=== PATIENT | female | born 1975 | race Two or more races ===

== ENCOUNTER 2024-04-23 12:20 | Inpatient (IN) | payer MEDICAID, OTHER ==
[~2024-04-23] VITALS: Ht 167.6 cm; Wt 102.6 kg
[2024-04-23 13:07] LABS: Basophils # (auto) 0 10 ^3/uL (0-0.2); Basophils % (auto) 0.4 % (0.0-2.0); Eosinophils # (auto) 0.2 10 ^3/uL (0-0.8); Eosinophils % (auto) 2.9 % (0.0-7.0); Hematocrit 28.8 % (36.0-46.0); Hemoglobin 9.3 g/dL (12.2-16.2); Lymphocytes % (auto) 29.2 % (10.0-50.0); Mean Corpuscular Hemoglobin 23.1 pg (28.0-32.0); Mean Corpuscular Hgb Conc. 32.2 g/dL (32.0-36.0); Mean Corpuscular Volume 71.8 fL (80.0-100.0); Monocytes # (auto) 0.5 10 ^3/uL (0-1.3); Monocytes % (auto) 7.4 % (0.0-12.0); Neutrophils % (auto) 60.1 % (37.0-80.0); Red Blood Cells 4.01 10^6/uL (4.0-5.20); Red Cell Distribution Width 18.3 % (11.8-14.3); White Blood Cell 6.7 10^3/uL (4.4-10.8)
[2024-04-23 13:24] LABS: Alanine Aminotransferase 22 U/L (7-40); Albumin 4.3 g/dL (3.2-4.8); Alkaline Phosphatase 87 U/L (46-116); Anion Gap 6 (5-15); Aspartate Aminotransferase 18 U/L (13-40); BUN/Creatinine Ratio 28.6 (10.0-20.0); Blood Urea Nitrogen 16 mg/dL (9-23); Calcium 9.3 mg/dL (8.7-10.4); Carbon Dioxide 24 mmol/L (20-30); Chloride 109 mmol/L (98-107); Glucose 101 mg/dL (74-106); Potassium 4.2 mmol/L (3.5-5.1); Sodium 139 mmol/L (136-145)
[2024-04-23 13:25] LABS: Bilirubin, Total 0.6 mg/dL (0.2-1.0); Total Protein 7.1 g/dL (5.7-8.2)
[2024-04-23] MEDS: IOHEXOL 350 MG/ML 100ML IJ ONE (13:57)
[2024-04-23 14:48] VITALS: PULSE 65; RESP 16; O2SAT 100
[2024-04-23 15:35] VITALS: PULSE 72; RESP 19; O2SAT 100
[2024-04-23] MEDS: ENOXAPARIN SOD 100 MG/1 ML SYRINGE SC ONE (15:47)
[2024-04-23 16:05] LABS: Urine Bacteria None Seen /hpf (None Seen)
[2024-04-23 16:35] LABS: Urine Blood 3+ /uL (Negative); Urine Clarity Clear (Clear); Urine Color Light-Yellow (Yellow); Urine Mucus FEW (None Seen); Urine Protein, UAD TRACE (Negative); Urine Urobilinogen Normal (Negative); Urine WBC 8 /hpf (0 - 5); Urine pH 5.5 (5.0-9.0)
[2024-04-23 16:36] LABS: Urine Specific Gravity > 1.050 (1.001-1.035)
[2024-04-23] MEDS ORDERED: HEPARIN SODIUM (PORCINE) 5000 UNITS/ML 1ML VIAL IV ONE (17:15)
[2024-04-23] MEDS ORDERED: DOCUSATE SOD 100 MG CAP PO PRN (17:15)
[2024-04-23] MEDS ORDERED: MORPHINE SULFATE INJ 2 MG/ml SYRG IV PRN ×2 (17:15)
[2024-04-23] MEDS ORDERED: HEPARIN DRIP/D5W 100UNITS/ML 250 ML IV SCH (17:15)
[2024-04-23] MEDS ORDERED: ONDANSETRON HCL 4 MG/2 ML VIAL IV PRN (17:15)
[2024-04-23] MEDS ORDERED: NITROGLYCERIN 0.4 MG SL TAB SL PRN (17:15)
[2024-04-23 17:55] LABS: Basophils # (auto) 0 10 ^3/uL (0-0.2); Basophils % (auto) 0.4 % (0.0-2.0); Eosinophils # (auto) 0.2 10 ^3/uL (0-0.8); Eosinophils % (auto) 2.4 % (0.0-7.0); Hematocrit 28.1 % (36.0-46.0); Lymphocytes # (auto) 2.1 10 ^3/uL (0.4-5.4); Lymphocytes % (auto) 30.8 % (10.0-50.0); Mean Corpuscular Hemoglobin 22.5 pg (28.0-32.0); Mean Corpuscular Volume 70.3 fL (80.0-100.0); Monocytes # (auto) 0.3 10 ^3/uL (0-1.3); Monocytes % (auto) 4.8 % (0.0-12.0); Neutrophils # (auto) 4.2 10 ^3/uL (1.6-8.6); Neutrophils % (auto) 61.6 % (37.0-80.0); White Blood Cell 6.9 10^3/uL (4.4-10.8)
[2024-04-23 18:13] LABS: INR 1.06 (0.9-1.15); Partial Thromboplastin Time 29.2 SEC (24.5-34.5); Prothrombin Time 11.2 sec (9.3-11.8)
[2024-04-23 18:15] LABS: % Iron Saturation 5.3 % (15-50)
[2024-04-23] MEDS: SODIUM CHLORIDE 0.9% 1,000 ML IV SCH (18:52)
[2024-04-23] MEDS: HEPARIN DRIP/D5W 100UNITS/ML 250 ML IV SCH (19:00)
[2024-04-23 19:15] VITALS: PULSE 98; RESP 24; O2SAT 100
[2024-04-23 22:37] VITALS: PULSE 82
[2024-04-23 22:50] VITALS: PULSE 98; RESP 14
[2024-04-24] VITALS (7 sets, daily range): BP systolic 118–132; BP diastolic 44–72; PULSE 65–90; RESP 16–20; TEMP 97.5–98.9; O2SAT 97–100
[2024-04-24] MEDS ORDERED: VITA100T3 PO (00:25)
[2024-04-24] MEDS ORDERED: FLAXOIL OR (00:25)
[2024-04-24] MEDS ORDERED: CHOL20007 PO (00:25)
[2024-04-24] MEDS ORDERED: OMEGCAP2 OR (00:25)
[2024-04-24 01:25] LABS: INR 1.08 (0.9-1.15); Partial Thromboplastin Time 42.7 SEC (24.5-34.5); Prothrombin Time 11.4 sec (9.3-11.8)
[2024-04-24 06:30] LABS: Basophils # (auto) 0 10 ^3/uL (0-0.2); Basophils % (auto) 0.7 % (0.0-2.0); Eosinophils # (auto) 0.2 10 ^3/uL (0-0.8); Hematocrit 26.7 % (36.0-46.0); Hemoglobin 8.6 g/dL (12.2-16.2); Mean Corpuscular Hgb Conc. 32.3 g/dL (32.0-36.0); White Blood Cell 6.8 10^3/uL (4.4-10.8)
[2024-04-24 06:32] LABS: Eosinophils % (auto) 2.9 % (0.0-7.0); Lymphocytes # (auto) 2.7 10 ^3/uL (0.4-5.4); Lymphocytes % (auto) 40.1 % (10.0-50.0); Monocytes # (auto) 0.5 10 ^3/uL (0-1.3); Monocytes % (auto) 6.9 % (0.0-12.0); Neutrophils # (auto) 3.4 10 ^3/uL (1.6-8.6); Neutrophils % (auto) 49.4 % (37.0-80.0); Nucleated Red Blood Cells % 0.1 %; Red Blood Cells 3.76 10^6/uL (4.0-5.20); Red Cell Distribution Width 18.1 % (11.8-14.3)
[2024-04-24 06:42] LABS: Alanine Aminotransferase 17 U/L (7-40); Alkaline Phosphatase 74 U/L (46-116); Anion Gap 5 (5-15); BUN/Creatinine Ratio 20.4 (10.0-20.0); Blood Urea Nitrogen 11 mg/dL (9-23); Calcium 8.8 mg/dL (8.7-10.4); Carbon Dioxide 24 mmol/L (20-30); Chloride 110 mmol/L (98-107); Glucose 103 mg/dL (74-106); Sodium 139 mmol/L (136-145)
[2024-04-24 06:44] LABS: Albumin 3.8 g/dL (3.2-4.8); Aspartate Aminotransferase 14 U/L (13-40); Bilirubin, Total 0.7 mg/dL (0.2-1.0); Total Protein 6.5 g/dL (5.7-8.2)
[2024-04-24 09:25] LABS: INR 1.08 (0.9-1.15); Prothrombin Time 11.4 sec (9.3-11.8)
[2024-04-24 09:30] LABS: Partial Thromboplastin Time 95.7 SEC (24.5-34.5)
[2024-04-24] MEDS: HEPARIN DRIP/D5W 100UNITS/ML 250 ML IV SCH (10:30)
[2024-04-24 11:37] LABS: Folate (Folic Acid) 18.54 ng/mL (>5.38)
[2024-04-24] MEDS: IRON SUCROSE COMPLEX 100 ML IV SCH (12:16)
[2024-04-24 18:13] LABS: INR 1.06 (0.9-1.15); Partial Thromboplastin Time 66.6 SEC (24.5-34.5); Prothrombin Time 11.2 sec (9.3-11.8)
[2024-04-24] MEDS: APIXABAN 5 MG TAB PO SCH (20:50)
[2024-04-25] VITALS (9 sets, daily range): BP systolic 108–133; BP diastolic 52–88; PULSE 62–99; RESP 14–20; TEMP 97.8–98.4; O2SAT 95–100
[2024-04-25 06:15] LABS: Basophils # (auto) 0 10 ^3/uL (0-0.2); Basophils % (auto) 0.5 % (0.0-2.0); Eosinophils # (auto) 0.2 10 ^3/uL (0-0.8); Hemoglobin 8.9 g/dL (12.2-16.2); Lymphocytes # (auto) 1.7 10 ^3/uL (0.4-5.4); Monocytes # (auto) 0.5 10 ^3/uL (0-1.3); Nucleated Red Blood Cells % 0.1 %
[2024-04-25 06:23] LABS: Eosinophils % (auto) 3.1 % (0.0-7.0); Hematocrit 27.4 % (36.0-46.0); Lymphocytes % (auto) 26.8 % (10.0-50.0); Mean Corpuscular Hemoglobin 22.9 pg (28.0-32.0); Mean Corpuscular Hgb Conc. 32.5 g/dL (32.0-36.0); Mean Corpuscular Volume 70.3 fL (80.0-100.0); Monocytes % (auto) 7.9 % (0.0-12.0); Neutrophils % (auto) 61.7 % (37.0-80.0); White Blood Cell 6.4 10^3/uL (4.4-10.8)
[2024-04-25 06:31] LABS: Anion Gap 7 (5-15); Calcium 8.8 mg/dL (8.7-10.4); Carbon Dioxide 22 mmol/L (20-30); Chloride 110 mmol/L (98-107); Potassium 3.9 mmol/L (3.5-5.1); Sodium 139 mmol/L (136-145)
[2024-04-25 06:37] LABS: BUN/Creatinine Ratio 17.9 (10.0-20.0); Blood Urea Nitrogen 10 mg/dL (9-23); Glucose 101 mg/dL (74-106)
[2024-04-25] MEDS: ACETAMINOPHEN 325 MG TAB PO PRN (11:36)
[2024-04-25] MEDS ORDERED: APIX5TAB PO (13:25)
[2024-04-25] MEDS ORDERED: FER325T PO (13:25)
[2024-04-25] MEDS ORDERED: APIX5TAB4 PO (15:00)
[2024-04-26] VITALS (7 sets, daily range): BP systolic 103–142; BP diastolic 56–85; PULSE 66–90; RESP 14–20; TEMP 97.6–98.7; O2SAT 96–99
[2024-04-26] MEDS ORDERED: APIX5TAB PO (16:36)
[2024-04-27 01:00] VITALS: BP 95/48; PULSE 76; RESP 19; TEMP 98.2; O2SAT 99
[2024-04-27 05:00] VITALS: BP 109/49; PULSE 70; RESP 18; TEMP 97.8; O2SAT 98
[2024-04-27 06:55] LABS: Anion Gap 6 (5-15); Carbon Dioxide 27 mmol/L (20-30); Chloride 106 mmol/L (98-107); Potassium 4.5 mmol/L (3.5-5.1); Sodium 139 mmol/L (136-145)
[2024-04-27 06:56] LABS: Calcium 9.6 mg/dL (8.7-10.4)
[2024-04-27 07:01] LABS: BUN/Creatinine Ratio 20.6 (10.0-20.0); Basophils # (auto) 0 10 ^3/uL (0-0.2); Basophils % (auto) 0.5 % (0.0-2.0); Blood Urea Nitrogen 14 mg/dL (9-23); Eosinophils # (auto) 0.2 10 ^3/uL (0-0.8); Glucose 96 mg/dL (74-106); Neutrophils # (auto) 4.8 10 ^3/uL (1.6-8.6)
[2024-04-27 07:03] LABS: Eosinophils % (auto) 2.5 % (0.0-7.0); Hematocrit 29.6 % (36.0-46.0); Hemoglobin 9.7 g/dL (12.2-16.2); Lymphocytes # (auto) 1.9 10 ^3/uL (0.4-5.4); Lymphocytes % (auto) 25.7 % (10.0-50.0); Mean Corpuscular Hgb Conc. 32.6 g/dL (32.0-36.0); Mean Corpuscular Volume 70.6 fL (80.0-100.0); Monocytes # (auto) 0.6 10 ^3/uL (0-1.3); Monocytes % (auto) 7.6 % (0.0-12.0); Neutrophils % (auto) 63.7 % (37.0-80.0); Nucleated Red Blood Cells % 0.1 %; Red Cell Distribution Width 18.2 % (11.8-14.3); White Blood Cell 7.5 10^3/uL (4.4-10.8)
[2024-04-27 09:00] VITALS: BP 151/79; PULSE 70; RESP 18; TEMP 97.9; O2SAT 98
[2024-04-27] MEDS ORDERED: APIX5TAB4 PO (09:35)
[2024-04-27 14:19] LABS: Hepatitis C Antibody Negative (Negative)
[2024-04-28 03:45] LABS: Hepatitis B Surface Antigen Negative (Negative)
[2024-05-01] MEDS ORDERED: APIXABAN 5 MG TAB PO SCH (22:00)
== END 2024-04-27 11:20 | disposition home or self-care (01) | DRG 134 ==
LOC: ER 12:20 → WEST WING 17:22 → OVERFLOW 17:22 → WEST WING 22:48 → TELE-WESTW 04-24 00:17 → WEST WING 04-25 23:50
PROVIDERS: ADMIT Internal Medicine Geriatric Medicine; ATTEND Internal Medicine Geriatric Medicine
DX: I26.99 Other pulmonary embolism without acute cor pulmonale (principal); D25.9 Leiomyoma of uterus, unspecified; D50.9 Iron deficiency anemia, unspecified; E66.9 Obesity, unspecified; R06.83 Snoring; N92.0 Excessive and frequent menstruation with regular cycle; M94.0 Chondrocostal junction syndrome [Tietze]; Z68.37 Body mass index [BMI] 37.0-37.9, adult; Z98.891 History of uterine scar from previous surgery; G51.0 Bell's palsy
CPT/HCPCS: 36415; 71045; 71275; 76856; 80048; 80053; 81001; 82607; 82728; 82746; 83540; 83550; 83615; 83880; 84439; 84443; 84484; 84702; 85025; 85045; 85379; 85610; 85730; 86038; 86803; 87340; 93005; 93306; 93971; G0378; J1756